=== PATIENT | female | born 1985 ===

== ENCOUNTER 2018-01-13 13:23 | Outpatient (CLI) | payer OTHER ==
[~2018-01-13 13:23] MED LIST: FLONASE16 GM NS; GILTUSS TR TAB1 EACH PO; ZITHROMAX500 MG PO; ZYRTEC10 M3; ZYRTEC10 MG PO
== END 2018-01-13 13:42 | disposition home or self-care (01) ==
LOC: NUCLEAR 13:23
DX: R00.2 Palpitations (principal); I11.9 Hypertensive heart disease without heart failure; I50.32 Chronic diastolic (congestive) heart failure

== ENCOUNTER 2018-05-18 06:55 | Outpatient (CLI) | payer OTHER | END 2018-05-18 07:00 | disposition home or self-care (01) | LOC: LAB 06:55 | DX: E61.8 Deficiency of other specified nutrient elements (principal); I10 Essential (primary) hypertension ==

== ENCOUNTER 2019-03-17 08:06 | Outpatient (CLI) | payer OTHER | END 2019-03-17 08:32 | disposition home or self-care (01) | LOC: LAB 08:06 | DX: I11.9 Hypertensive heart disease without heart failure (principal); R73.02 Impaired glucose tolerance (oral); E78.2 Mixed hyperlipidemia ==

== ENCOUNTER 2019-08-24 09:35 | Outpatient (CLI) | payer OTHER | END 2019-08-24 09:58 | disposition home or self-care (01) | LOC: LAB 09:35 | DX: J11.1 Influenza due to unidentified influenza virus with other respiratory manifestations (principal) ==

== ENCOUNTER 2020-01-26 14:04 | Outpatient (CLI) | payer OTHER | END 2020-01-26 14:11 | disposition home or self-care (01) | LOC: LAB 14:04 | DX: D64.89 Other specified anemias (principal); R10.84 Generalized abdominal pain; E03.8 Other specified hypothyroidism; E78.49 Other hyperlipidemia; R80.8 Other proteinuria; E11.9 Type 2 diabetes mellitus without complications ==

== ENCOUNTER 2020-01-29 12:51 | Outpatient (CLI) | payer OTHER | END 2020-01-29 12:59 | disposition home or self-care (01) | LOC: SONOGRAMA 12:51 → MAMO-SONO 13:15 | DX: E03.8 Other specified hypothyroidism (principal) ==

== ENCOUNTER 2020-02-12 13:36 | Outpatient (CLI) | payer OTHER | END 2020-02-12 13:48 | disposition home or self-care (01) | LOC: RAD 13:36 | DX: M54.5 Low back pain (principal) ==

== ENCOUNTER → 2020-07-30 06:39 | Outpatient (CLI) | payer OTHER | END | disposition home or self-care (01) | LOC: LAB 06:39 | PROVIDERS: ATTEND Internal Medicine | DX: I10 Essential (primary) hypertension (principal); E78.49 Other hyperlipidemia; D64.89 Other specified anemias; R10.84 Generalized abdominal pain; R80.8 Other proteinuria; E11.9 Type 2 diabetes mellitus without complications ==

== ENCOUNTER 2020-08-15 10:00 | Outpatient (CLI) | payer OTHER | END 2020-08-15 15:48 | disposition home or self-care (01) | LOC: PPH VACUNA 10:00 | DX: Z23 Encounter for immunization (principal) ==

== ENCOUNTER 2020-12-25 13:28 | Outpatient (CLI) | payer OTHER | END 2020-12-25 14:00 | disposition home or self-care (01) | LOC: OFIC 805 13:28 | PROVIDERS: ATTEND Otolaryngology | DX: H92.01 Otalgia, right ear (principal); R07.0 Pain in throat; J03.80 Acute tonsillitis due to other specified organisms ==

== ENCOUNTER 2023-10-22 13:42 | Outpatient (CLI) | payer OTHER | END 2023-10-22 13:58 | disposition home or self-care (01) | LOC: RAD 13:42 | PROVIDERS: ATTEND Internal Medicine Pulmonary Disease | DX: J45.31 Mild persistent asthma with (acute) exacerbation (principal); E66.01 Morbid (severe) obesity due to excess calories; R05.3 Chronic cough ==

== ENCOUNTER 2024-09-13 10:54 | Outpatient (CLI) | payer OTHER | END 2024-09-13 11:08 | disposition home or self-care (01) | LOC: MAMO-SONO 10:54 | PROVIDERS: ATTEND Obstetrics & Gynecology | DX: N63.12 Unspecified lump in the right breast, upper inner quadrant (principal); N63.21 Unspecified lump in the left breast, upper outer quadrant ==